=== PATIENT | female | born 1950 | race Caucasian/White ===

== ENCOUNTER 2017-10-21 08:18 | Day surgery (SDC) | payer MEDICARE, OTHER ==
[~2017-10-21 08:18] MED LIST: ASPI81CH; Bentyl20 MG; CALCA400CH; COLE625; CONEST.625; LEVSOD50; LISI20; MULT50L; OMEPRAZOLE MAGN20 MG; POLY500; RANI150; SERT50
== END 2017-10-21 10:31 | disposition home or self-care (01) ==
LOC: ORSCSDS 08:18
PROVIDERS: Ophthalmology
PROC: 08RK3JZ Replacement of Left Lens with Synthetic Substitute, Percutaneous Approach (ICD-10-PCS; principal; 2017-10-21 10:30)
DX: H25.12 Age-related nuclear cataract, left eye (principal); I10 Essential (primary) hypertension; E03.9 Hypothyroidism, unspecified; Z79.899 Other long term (current) drug therapy
CPT/HCPCS: J2250; J3010; J3301; J7040; V2632

== ENCOUNTER 2017-12-09 08:18 | Day surgery (SDC) | payer MEDICARE, OTHER ==
[~2017-12-09] VITALS: Ht 144.8 cm; Wt 50.4 kg
== END 2017-12-09 10:31 | disposition home or self-care (01) ==
LOC: ORSCSDS 08:18
PROVIDERS: Ophthalmology
PROC: 08RJ3JZ Replacement of Right Lens with Synthetic Substitute, Percutaneous Approach (ICD-10-PCS; principal; 2017-12-09 10:00)
DX: H25.11 Age-related nuclear cataract, right eye (principal); I10 Essential (primary) hypertension; E03.9 Hypothyroidism, unspecified; Z79.899 Other long term (current) drug therapy
CPT/HCPCS: J2250; J3301; J7040; V2632

== ENCOUNTER 2018-01-16 10:33 | Emergency (ER) | payer MEDICARE, OTHER ==
[~2018-01-16] VITALS: Ht 144.8 cm; Wt 50.0 kg
[2018-01-16] MEDS ORDERED: Keflex500 MG PO (11:10)
[2018-01-16] MEDS ORDERED: (None)20 M1 PO (11:10)
== END 2018-01-16 11:12 | disposition home or self-care (01) ==
LOC: ER 10:33
DX: H05.222 Edema of left orbit (principal); H02.842 Edema of right lower eyelid; I10 Essential (primary) hypertension; K21.9 Gastro-esophageal reflux disease without esophagitis; F32.9 Major depressive disorder, single episode, unspecified; E03.9 Hypothyroidism, unspecified; Z88.8 Allergy status to other drugs, medicaments and biological substances; Z88.5 Allergy status to narcotic agent; Z91.048 Other nonmedicinal substance allergy status; Z79.899 Other long term (current) drug therapy; Z79.82 Long term (current) use of aspirin
CPT/HCPCS: 99282

== ENCOUNTER 2018-01-18 10:09 | Emergency (ER) | payer MEDICARE, OTHER ==
[~2018-01-18] VITALS: Ht 144.8 cm; Wt 49.9 kg
[~2018-01-18 10:09] MED LIST changes: -Bactrim Ds Tab1 EACH PO
[2018-01-18] MEDS ORDERED: Bactrim Ds Tab1 EACH PO (14:13)
== END 2018-01-18 14:32 | disposition home or self-care (01) ==
LOC: ER 10:09
DX: H04.302 Unspecified dacryocystitis of left lacrimal passage (principal); Z88.8 Allergy status to other drugs, medicaments and biological substances; Z91.09 Other allergy status, other than to drugs and biological substances; Z88.5 Allergy status to narcotic agent; Z79.899 Other long term (current) drug therapy; Z79.82 Long term (current) use of aspirin; Z79.52 Long term (current) use of systemic steroids
CPT/HCPCS: 36415; 70487; 99283-25; Q9967

== ENCOUNTER → 2018-01-18 | Outpatient (CLI) | payer MEDICARE, OTHER ==
[~2018-01-18] MED LIST changes: +(None)20 M1 PO; +Bactrim Ds Tab1 EACH PO; +Keflex500 MG PO
== END | disposition home or self-care (01) ==
LOC: LAB EV 17:57 → LAB SHORT 17:57
DX: L03.213 Periorbital cellulitis (principal)
CPT/HCPCS: 87070; 87205

== ENCOUNTER → 2018-02-02 | Outpatient (CLI) | payer MEDICARE, OTHER ==
[~2018-02-02] MED LIST changes: +Bactrim Ds Tab1 EACH PO
== END | disposition home or self-care (01) ==
LOC: LAB EV 15:30 → LAB SHORT 15:30
DX: H04.302 Unspecified dacryocystitis of left lacrimal passage (principal)
CPT/HCPCS: 87070; 87205

== ENCOUNTER 2020-10-01 14:02 | Day surgery (SDC) | payer MEDICARE, OTHER ==
[~2020-10-01 14:02] MED LIST changes: +FURO20 PO; +Norco 5-325 Ta1 EACH
== END 2020-10-01 16:20 | disposition home or self-care (01) ==
LOC: ORSCSDS 14:02
PROVIDERS: Internal Medicine Gastroenterology
PROC: 0DB58ZX Excision of Esophagus, Via Natural or Artificial Opening Endoscopic, Diagnostic (ICD-10-PCS; principal; 2020-10-01 15:00)
DX: K22.70 Barrett's esophagus without dysplasia (principal); K44.9 Diaphragmatic hernia without obstruction or gangrene; I10 Essential (primary) hypertension; E03.9 Hypothyroidism, unspecified; Z79.899 Other long term (current) drug therapy; Z79.82 Long term (current) use of aspirin
CPT/HCPCS: 88305; J2704; J7120

== ENCOUNTER → 2021-12-23 | Outpatient (CLI) | payer MEDICARE, OTHER ==
[2021-12-24 10:42] LABS: Stool Occult Bld Immuno 1 Negative (NEGATIVE); Stool Occult Bld Immuno 2 Positive (NEGATIVE)
== END | disposition home or self-care (01) ==
LOC: LAB SHORT 14:38 → LAB 14:38
PROVIDERS: Internal Medicine Gastroenterology
DX: Z09 Encounter for follow-up examination after completed treatment for conditions other than malignant neoplasm (principal); Z86.010 Personal history of colon polyps
CPT/HCPCS: 82274

== ENCOUNTER → 2024-09-08 | Outpatient (CLI) | payer MEDICARE, OTHER ==
[2024-09-09 15:17] LABS: Stool Occult Bld Immuno 1 Positive (NEGATIVE)
== END ==
LOC: LAB 13:05 → LAB SHORT 13:05
PROVIDERS: Family Medicine
DX: R19.5 Other fecal abnormalities (principal)
CPT/HCPCS: 82274